=== PATIENT | male | born 1960 | race Caucasian/White ===

== ENCOUNTER 2019-07-10 09:17 | Emergency (ER) | payer OTHER, BC, SELFPAY ==
--- NOTE | ~2019-07-10 | XR_ITS ---
EXAMINATION: XR finger 3rd RT min 2V DATE: 07/10/2019 10:30 INDICATION: Status post foreign body removal TECHNIQUE: Dorsal palmar, lateral and 2 oblique views of the right third digit were obtained COMPARISON: 07/10/2019 at 9:39 AM FINDINGS: Bone alignment is normal. No fracture. 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 The previously seen small radiopaque foreign body at the palmar aspect of the third digit at the l evel of the distal interphalangeal joint is no longer visualized. Very subtle irregularity along the skin surface at the palmar crease of the third distal interphalangeal joint likely representing the s ite of reported laceration. Soft tissue swelling about the third proximal interphalangeal joint. Tiny ovoid heterotopic ossicle at the radial side of the head of the third proximal phalanx which could b e degenerative or more likely sequela of old trauma. IMPRESSION: 1. No residual radiopaque foreign bodies identified in the palmar soft tissues at the distal right th ird digit. Reviewed, dictated and finalized at location A. IMPRESSION: 1. No residual radiopaque foreign bodies identified in the palmar soft tissues at the distal right third digit.
--- NOTE | ~2019-07-10 | XR_ITS ---
XR finger 3rd RT min 2V DATE: 07/10/2019 09:44 INDICATION: Plywood splinter through mid finger. TECHNIQUE: 4 views COMPARISON: None FINDINGS: There is focal mild subcutaneous emphysema in association with what appears to be a radiopa que foreign body penetrating the volar aspect of the soft tissues of the distal digit anterior to the distal interphalangeal joint, with evidence of 2 4 bodies, one immediately subjacent to the skin and the other larger approximately 1.5 x 2 mm radial opaque foreign body situated and greater depth in t he anteromedial soft tissues at the anterior aspect of the head of the middle phalanx. There is osteoarthritic change at the distal interphalangeal joint. No fracture or dislocation, periosteal reaction or bone destruction. IMPRESSION: 2 radiopaque soft tissue foreign bodies at the distal anteromedial third digit with assoc iated minimal subcutaneous emphysema Reviewed, dictated and finalized at location A. IMPRESSION: 2 radiopaque soft tissue foreign bodies at the distal anteromedial third digit with associated minimal subcutaneous emphysema
[2019-07-10 09:21] VITALS: BP 171/109; PULSE 71; RESP 16; TEMP 36.6; O2SAT 94
[2019-07-10] MEDS: WATER, STERILE FOR INJECTION 10 ML VIAL XX (09:33)
--- NOTE | 2019-07-10 09:44 | ED.UPPEXIN ---
HPI - Extremity Injury (Upper) General Chief Complaint: Extremity Injury, Upper Stated Complaint: r hand injury Time Seen by Provider: 07/10/19 09:28 Source: patient Mode of arrival: ambulatory Limitations: no limitations History of Present Illness HPI narrative: This patient is a right hand dominant 58 year old male who presents with c/o right 3rd finger injury. Patient was at work when a piece of plywood slid down onto his hand. He states he has large splinter in his 3rd finger and he is unable to remove. His last tetanus has been in the past 5 years. He has pain with movement of his 3rd finger. complaint: injury to: right and finger Related Data Allergies Allergy/AdvReac Type Severity Reaction Status Date / Time No Known Allergies Allergy Unknown Verified 07/10/19 09:23 Review of Systems Review of Systems: All systems reviewed & are unremarkable except as noted in HPI and below PMFSH Surgical History Surgical History (Updated 07/10/19 @ 09:46 by Cecile Holloway MD) H/O right knee surgery Exam Const: General: no acute distress and alert Orientation/consciousness: patient oriented x3 Resp: Effort & Inspection: normal respiratory effort Neuro: General: patient oriented x3 and moves all extremities Extrem: Other: right hand with large splinter poking on palmar aspect and smaller poking out of ulnar aspect Course Reevaluation(s) Reevaluation #1: I was able to perform digital nerve block and remove 2 pieces of splinter. Patient has minimal pain and full rOM of finger. Xray shows FB no longer seen. Date: 07/10/19 Time: 11:31 Vital Signs Vital signs: Vital Signs Temperature 97.9 F 07/10/19 09:21 Pulse Rate 71 07/10/19 09:21 Respiratory Rate 16 07/10/19 09:21 Blood Pressure 171/109 H 07/10/19 09:21 Pulse Oximetry 94 07/10/19 09:21 Temperature 97.9 F 07/10/19 09:21 Pulse Rate 71 07/10/19 09:21 Respiratory Rate 16 07/10/19 09:21 Blood Pressure 171/109 H 07/10/19 09:21 Pulse Oximetry 94 07/10/19 09:21 Procedures Foreign Body Removal Foreign Body #1: Foreign Body Removal Date: 07/10/19 Foreign Body Removal Time: 10:00 Site: right and hand (3rd finger) Description of foreign body: other (splinter) Sedation/Analgesia: other (digit nerve block with bupivocaine) Technique: manual removal and removal with forceps Confirmed by:: radiograph Complications: none Post-procedure exam: awake, alert Neurovascular: normal distal pulse, normal capillary fill, distal light touch sensation intact and distal motor function normal MDM - Extremity Injury (Upper) Imaging Data Radiologist's impression: ITS Impressions Finger X-Ray 07/10/19 09:46 IMPRESSION: 2 radiopaque soft tissue foreign bodies at the distal anteromedial third digit with associated minimal subcutaneous emphysema Finger X-Ray 07/10/19 10:32 IMPRESSION: 1. No residual radiopaque foreign bodies identified in the palmar soft tissues at the distal right third digit. Discharge Plan Discharge Clinical Impression: Splinter of finger Patient Disposition: Home, Self-Care Condition: Stable Instructions: Antibiotic Form, Puncture Wound (ED), Finger Laceration (ED) Additional Instructions: Please watch for signs of infection such as swelling, redness, pain, pus drainage. If that occurs you will need to return to ER. Follow up with hand surgeon to assess for injury Prescriptions: New amoxicillin-pot clavulanate [Augmentin] 875-125 mg tablet 1 tablet PO Q12H Qty: 14 RF: 0 Follow-up/Referrals: Patricio Malcolm MD [Physician] - PHYSICIAN,FURNACE TENDER [Primary Care Provider] - Discharge Date/Time: 07/10/19 11:45
[2019-07-10] MEDS: ceFAZolin SODIUM 1 GM VIAL IV PUSH (09:48)
== END 2019-07-10 11:45 | disposition home or self-care (01) ==
PROVIDERS: Emergency Provider General Practice
DX: S60.452A Superficial foreign body of right middle finger, initial encounter (principal); W45.8XXA Other foreign body or object entering through skin, initial encounter
CPT/HCPCS: 73140; 96374; 99284; J0690

== ENCOUNTER 2022-02-25 09:45 | Emergency (ER) | payer BC, SELFPAY ==
--- NOTE | ~2022-02-25 | CT_ITS ---
EXAMINATION: CT abdomen pelvis w con DATE: 02/25/2022 12:01 INDICATION: Right inguinal bulge TECHNIQUE: Computed tomography (CT) of the abdomen and pelvis was performed with 100 cc Omnipaque 350 intravenous contrast. The dose-length product was 1418.90 mGy-cm. Automated exposure control and ite rative reconstruction technique were employed. COMPARISON: None. FINDINGS: There is dependent atelectasis. No significant pleural or pericardial effusion. Heart size is normal. There are changes of ventral hernia repair in the upper abdomen centrally. There are proba ble focal areas of fat necrosis along the right cardiophrenic angle. Small subcentimeter hypodensity of the right hepatic lobe, most likely benign. The spleen, pancreas, adrenal glands and right kidney are unremarkable. There are small subcentimeter hypodensities of the left kidney, most likely benign. No hydronephrosis There is a right inguinal hernia containing nonobstructed small bowel and bladder. Nonobstructive bow el gas pattern. Colonic diverticulosis without evidence for diverticulitis. No free air or free fluid . Mild lumbar spondylosis. IMPRESSION: 1. Right inguinal hernia containing nonobstructed small bowel and bladder. Reviewed, dictated and finalized at location A. 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
[2022-02-25 09:55] VITALS: BP 168/99; PULSE 72; RESP 20; TEMP 36.6; O2SAT 96
[2022-02-25 10:05] LABS: Basophils Absolute Auto 0.1 K/mm3 (0.0-0.1); Basophils Percent Auto 0.9 % (0.2-1.2); Eosinophils Absolute Auto 0.4 K/mm3 (0-0.3); Eosinophils Percent Auto 4.5 % (0-4.4); Hematocrit 50.7 % (42.0-52.0); Hemoglobin 16.7 g/dL (14.0-18.0); Immature Granulocyte Absolute 0.05 K/mm3 (0.00-0.031); Immature Granulocyte Percent A 0.6 % (0-0.5); Mean Corpuscular HGB Conc 32.9 g/dl (32-36); Mean Corpuscular Hemoglobin 30.3 pg (26-34); Mean Corpuscular Volume 91.8 fl (80-100); Mean Platelet Volume 8.6 fl (7.4-10.4); Monocytes Absolute Auto 0.6 K/mm3 (0.1-0.6); Monocytes Percent Auto 7.9 % (2.6-8.5); Neutrophils Absolute Auto 4.9 K/mm3 (1.3-6.7); Neutrophils Percent Auto 61.1 % (45.5-73.1); Platelet Count Result 332 k/mm3 (150-375); Red Blood Count 5.52 M/mm3 (4.6-6.20); Red Cell Distribution Width 12.6 % (11.5-14.5)
[2022-02-25 10:52] LABS: Alanine Aminotransferase 27 U/L (6-50); Albumin Level 4.3 g/dL (3.5-5.1); Alkaline Phosphatase 86 U/L (38-126); Anion Gap 3 mmol/L (8-16); Aspartate Amino Transferase 26 U/L (17-59); Bilirubin,Total 0.7 mg/dL (0.2-1.3); Blood Urea Nitrogen 17 mg/dL (9-20); Calcium 9.1 mg/dL (8.4-10.2); Carbon Dioxide 29 mmol/L (22-30); Chloride 108 mmol/L (98-107); Estimated CRCL calculation 91 ml/min; Estimated Glomerular Filt Rate > 60; Glucose 113 mg/dL (65-110); Lipase 129 U/L (23-300); Potassium 3.9 mmol/L (3.4-5.0); Sodium 140 mmol/L (137-145)
--- NOTE | 2022-02-25 11:34 | ED.GENADULT ---
HPI - General Adult General Chief complaint: Urogenital-Male <Janell Fernandez PA-C - Last Filed: 02/25/22 16:29> Stated complaint: right groin pain <GISELLA Ponce Last Filed: 02/25/22 16:29> Time Seen by Provider: 02/25/22 11:24 <Janell Fernandez PA-C - Last Filed: 02/25/22 16:29> History of Present Illness HPI narrative: Patient is a 61-year-old male here for evaluation of right inguinal pain. Patient states that he has felt a pain in his groin over the past several days that he likens to a muscle sprain, but the pain acutely worsened today. He now feels a bulge in his groin that is tender to palpation. Patient has been coughing and notes that the pain is worse with cough. No nausea, vomiting, dysuria, urgency or frequency. <GISELLA Ponce Last Filed: 02/25/22 16:29> Related Data Allergies/adverse reactions: Allergies Allergy/AdvReac Type Severity Reaction Status Date / Time No Known Allergies Allergy Unknown Verified 02/25/22 11:35 <GISELLA Ponce Last Filed: 02/25/22 16:29> Review of Systems Review of Systems: Gen.: Denies fevers or chills Eyes: Denies eye pain or visual change ENT: Denies congestion Respiratory: Denies shortness of breath or cough CV: Denies chest pain or palpitations GI: Denies abdominal pain nausea, emesis or diarrhea denies burning, urgency, frequency or hematuria Musculoskeletal: Reports right groin pain. Denies back pain or muscle pain Neuro: Denies numbness, tingling, weakness or focal weakness Skin: Denies rash Except as documented, all other systems reviewed and negative <GISELLA Ponce Last Filed: 02/25/22 16:29> PENDING SALE TO [facility] Past Medical History Medical History: Medical History (Updated 02/25/22 @ 13:57 by Lenny Alfonso DO) Tobacco dependence due to cigarettes <GISELLA Ponce Last Filed: 02/25/22 16:29> Surgical History Surgical History: Surgical History (Updated 02/25/22 @ 13:53 by Lenny Alfonso DO) H/O right knee surgery History of congenital diaphragmatic hernia History of left inguinal hernia repair History of ventral hernia repair <Janell Fernandez PA-C - Last Filed: 02/25/22 16:29> Family History Family History: Family History (Updated 02/25/22 @ 13:54 by Lenny Alfonso DO) Father Heart disease Cerebrovascular accident <GISELLA Ponce Last Filed: 02/25/22 16:29> Social History Social History: Social History (Updated 02/25/22 @ 13:55 by Lenny Alfonso DO) Smoking packs per day: 1.5 Smoking cigarettes per day: 30.0 Years smoked: 40 Smoking pack-years: 60.00 Smoking status: Current every day smoker Tobacco type: cigarettes Alcohol intake: current Drinks per week: 6 Substance use: current Substance use type: marijuana <GISELLA Ponce Last Filed: 02/25/22 16:29> Exam Narrative: APPEARANCE: Well appearing, no pain in distress, well-nourished. Head: Normocephalic and atraumatic. EYES: PERRLA/EOMI, conjunctivae clear NOSE: No nasal drainage EARS: External ear normal in appearance THROAT: Oropharynx is clear. Mucous membranes are moist. NECK: Supple. No adenopathy, no masses. RESPIRATORY: Airway patent, respirations nonlabored. Clear to auscultation bilaterally, no rales, rhonchi, wheezing. CARDIOVASCULAR: Regular rate and rhythm without murmurs, rubs, or gallops. ABDOMINAL: Palpable inguinal hernia and right scrotum, very tender to palpation, not easily reducible. MUSCULOSKELETAL: Extremities are warm and well-perfused. Moves all extremities well. No edema. NEURO: Normal speech. No focal neurologic deficits. SKIN: Skin is warm and dry. No rashes. PSYCHIATRIC: Normal affect/mood. 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
[2022-02-25] MEDS: MORPHINE SULFATE (*CRX) 4 MG/ML INJ IV PUSH (11:37)
[2022-02-25] MEDS: MORPHINE SULFATE (*CRX) 2 MG/ML INJ IV PUSH (12:21)
[2022-02-25 13:00] VITALS: BP 168/96; PULSE 76; RESP 18; O2SAT 100
[2022-02-25 13:15] VITALS: BP 178/94; PULSE 80; RESP 20; O2SAT 99
--- NOTE | 2022-02-25 13:48 | PM.CNGS ---
Assessment and Plan Assessment and plan (1) Incarcerated right inguinal hernia: Code(s): K40.30 - Unilateral inguinal hernia, with obstruction, without gangrene, not specified as recurrent Status: Acute Assessment and Plan: patient presented to the emergency department with right groin pain and a bulge that he 1st noticed about 4 or 5 hours ago while lifting heavy objects out of his truck. This was noted to be incarcerated by the ED practitioner and was unable to be reduced initially. CT showed evidence of a right inguinal hernia containing nonobstructed bowel and bladder. I reviewed the CT and then evaluated the patient. I was able to gently manipulate the hernia contents and completely reduced the hernia with about 1 minute of gentle pressure and manipulation. Patient felt relief of his pain once the hernia was reduced. He can be discharged from the emergency department and I have recommended rest for the next several days. Would recommend continuing to limit any strenuous activity to prevent recurrent incarceration. He may also try to wear a hernia belt or truss to help with symptoms. I did discuss that a hernia belt will not prevent a recurrent incarceration. Would recommend eventual surgical repair. If this can be planned electively, this could be performed as an outpatient procedure. I have recommended robotic assisted laparoscopic right inguinal hernia repair with mesh. I will have my office contact patient in the next several days to begin surgical scheduling and arrangements. (2) Tobacco dependence due to cigarettes: Code(s): F17.210 - Nicotine dependence, cigarettes, uncomplicated Status: Acute History of Present Illness Consult details Consult date: 02/25/22 Reason for consult: other (Incarcerated right inguinal hernia) Requesting physician: Janell Fernandez PA-C Narrative: This is a 61-year-old man who I am asked to see in the emergency department for an incarcerated right inguinal hernia. The patient has had some groin pain for the past several months but has not noticed any significant bulge previously. He was doing some heavy physical activity with work this morning and was moving some stuff out of his truck when he began experiencing worsening pain that almost doubled him over. He states that he could not even put a belt on and therefore decided to come to the emergency department. He denies any change in bowel habits or any nausea or vomiting. The patient had a CT of his abdomen and pelvis in the emergency department which showed evidence of a right inguinal hernia containing nonobstructed bowel and bladder. His white blood count and lactic acid were normal. The ED practitioner attempted to reduce the hernia with Trendelenburg position, ice, and IV pain meds. It was still exquisitely tender and non reducible, therefore I was called to evaluate the patient. Review of Systems Review of Systems: All systems reviewed & are unremarkable except as noted in HPI and below Constitutional: Constitutional: Denies chills and Denies fever(s) Eyes: Eyes: Denies change in vision ENT: Denies hearing loss, Denies neck pain and Denies sore throat Cardiovascular: Cardiovascular: Denies chest pain and Denies dyspnea Respiratory: Respiratory: Denies cough, Denies dyspnea and Denies wheezing Gastrointestinal: Gastrointestinal: Reports as per HPI Genitourinary: Genitourinary: Denies hematuria and Denies dysuria Musculoskeletal: Musculoskeletal: Denies arthralgias, Denies joint swelling and Denies neck pain Allergic/Immunologic: Allergic/Immunologic: Denies wheezing [facility] Past Medical History Medical History (Updated 02/25/22 @ 13:57 by Lenny Alfonso DO) Tobacco dependence due to cigarettes Surgical History Surgical History (Updated 02/25/22 @ 13:53 by Lenny Alfonso DO) H/O right knee surgery History of congenital diaphragmatic hernia History of left inguinal hernia repa
[2022-02-25 14:21] VITALS: BP 149/91; PULSE 81; RESP 18; O2SAT 96
[2022-02-25 14:36] LABS: Add Urine Microscopic? NO; Appearance Urine Clear (Clear); Bilirubin Urine Negative (Negative); Blood Urine Negative (Negative); Color Urine Yellow (Yellow); Glucose Urine UA Negative (Negative); Ketones Urine Negative (Negative); Leukocyte Esterase Ur Negative LEU/UL (Negative); Nitrate Urine Negative (Negative); Protein Urine Negative (Negative); Urobilinogen Urine 0.2 mg/dL (<2.0)
== END 2022-02-25 14:26 | disposition home or self-care (01) ==
PROVIDERS: General Practice; Emergency Provider Physician Assistant
DX: K40.30 Unilateral inguinal hernia, with obstruction, without gangrene, not specified as recurrent (principal); F17.210 Nicotine dependence, cigarettes, uncomplicated
CPT/HCPCS: 36415; 74177; 80053; 81003; 83605; 83690; 85025; 96374; 96376; 99284; J2270; Q9967

== ENCOUNTER 2022-06-10 16:29 | Emergency (ER) | payer BC, SELFPAY ==
[2022-06-10 16:38] VITALS: BP 167/96; PULSE 87; RESP 16; TEMP 37.1; O2SAT 99
[2022-06-10 16:42] VITALS: BP 167/96; PULSE 87; RESP 16; TEMP 37.1; O2SAT 99
--- NOTE | 2022-06-10 16:42 | ED.SKABFB ---
HPI - Skin/Abscess/Foreign Bdy General Chief complaint: Skin/Abscess/Foreign Body Stated complaint: rash Source: patient Mode of arrival: ambulatory Limitations: no limitations History of Present Illness HPI narrative: Patient is a 61-year-old male that presents with rash to upper buttocks, bilateral groin, and thighs for over 2 weeks. Patient states it started on upper buttocks and has spread. Unsure of what it looked like discharge stating he can not see the rash. Denies any itching. States he has been using cortisone cream with no relief. Reports dog has been sleeping in bed with. Denies any no soaps, detergents, clothing. Denies any fever, chills, shortness of breath. Related Data Allergies Allergy/AdvReac Type Severity Reaction Status Date / Time No Known Allergies Allergy Unknown Verified 06/10/22 16:33 Review of Systems Review of Systems: All systems reviewed & are unremarkable except as noted in HPI and below Constitutional: Constitutional: Denies body ache(s), Denies fever(s), Denies headache(s), Denies malaise and Denies weakness Eyes: Eyes: Denies loss of vision ENT: Denies otalgia, Denies headache(s), Denies nasal discharge, Denies sinus pain and Denies sore throat Cardiovascular: Cardiovascular: Denies chest pain, Denies irregular heart rhythm and Denies dyspnea Respiratory: Respiratory: Denies dyspnea Gastrointestinal: Gastrointestinal: Denies abdominal pain, Denies melena, Denies hematochezia, Denies diarrhea, Denies nausea and Denies vomiting Musculoskeletal: Musculoskeletal: Denies back pain, Denies myalgias and Denies arthralgias Integumentary/Breasts: Skin/Breast: Denies pruritus and Reports rash Neurologic: Denies headache(s), Denies loss of vision and Denies weakness Psychiatric: Psychiatric: Reports no additional psychiatric complaints PMFSH Past Medical History Medical History (Updated 06/10/22 @ 17:14 by Ashlee Odell APRN) Tobacco dependence due to cigarettes Surgical History Surgical History (Updated 02/25/22 @ 13:53 by Lenny Alfonso DO) H/O right knee surgery History of congenital diaphragmatic hernia History of left inguinal hernia repair History of ventral hernia repair Family History Family History (Updated 02/25/22 @ 13:54 by Lenny Alfonso DO) Father Heart disease Cerebrovascular accident Social History Social History (Updated 02/25/22 @ 13:55 by Lenny Alfonso DO) Smoking packs per day: 1.5 Smoking cigarettes per day: 30.0 Years smoked: 40 Smoking pack-years: 60.00 Smoking status: Current every day smoker Tobacco type: cigarettes Alcohol intake: current Drinks per week: 6 Substance use: current Substance use type: marijuana Comments At time of signature, agree with nursing past medical, surgical, social and family history. There is no relevant family history pertinent to the presenting complaint. Exam Const: General: cooperative, healthy appearing, comfortable, no acute distress and well nourished Nutritional Appearance: well nourished Orientation/consciousness: patient oriented x3 Limitations: no limitations HENMT: Head: normal to inspection, normocephalic and atraumatic Ears: external ears normal Face/Nose/Sinus: Normal external nose present, normal facial exam and face symmetric Face and sinus: normal facial exam and face symmetric Mouth: Yes lip normal Eyes: General: appearance normal, both eyes and all related structures Alignment and Position: alignment normal and position normal Periorbital: periorbital findings normal Eyelids: eyelids normal Pupils: Equal, round and reactive pupils present EOM: EOMs intact bilaterally Neck: Neck: normal visual inspection and full ROM Chest: Chest palpation & inspection: normal inspection of the chest Resp: Effort & Inspection: normal respiratory effort and able to speak in complete sentences Auscultation: clear to auscultation bilaterally Cardio: Rate: regu
== END 2022-06-10 17:28 | disposition home or self-care (01) ==
PROVIDERS: Emergency Provider Nurse Practitioner Family
DX: R21 Rash and other nonspecific skin eruption (principal); F17.210 Nicotine dependence, cigarettes, uncomplicated
CPT/HCPCS: 99213; G0463

== ENCOUNTER 2022-06-26 13:32 | Emergency (ER) | payer BC, SELFPAY ==
--- NOTE | ~2022-06-26 | XR_ITS ---
EXAM: XR elbow LT min 3V DATE: 06/26/2022 13:56 HISTORY: PAIN SWELLING AND REDNESS POSTERIOR LT ELBOW . COMPARISON: None available. FINDINGS: Normal mineralization. No fracture or dislocation. No lytic or blastic lesion. Mild degene rative change at the elbow joint. No erosion or periosteal change. Posterior soft tissue swelling. IMPRESSION: No acute osseous finding in the left elbow. Reviewed, dictated and finalized at location K.
[2022-06-26 13:40] VITALS: BP 120/95; PULSE 98; RESP 16; TEMP 37.3; O2SAT 97
--- NOTE | 2022-06-26 14:19 | ED.EXTPRO ---
HPI - Extremity Problem General Chief complaint: Extremity Problem,Nontraumatic Stated complaint: Elbow Injury Time Seen by Provider: 06/26/22 14:19 Source: patient, RN notes reviewed and old records reviewed Mode of arrival: ambulatory Limitations: no limitations History of Present Illness HPI Narrative: 61-year-old male presents to the [facility] with complaints of left elbow pain posterior. Swelling noted to the lateral on. States has been going on for approximately 1 week. No treatment prior to arrival. Two days ago patient noticed redness to the posterior arm, not circumferential. Has full range of motion the elbow, wrist. 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 Capillary refill under 2 seconds with sensation intact. Positive radial pulse Onset (ago): week(s) (1) Related Data Allergies Allergy/AdvReac Type Severity Reaction Status Date / Time No Known Allergies Allergy Unknown Verified 06/10/22 16:33 Review of Systems Review of Systems: All systems reviewed & are unremarkable except as noted in HPI and below Constitutional: Constitutional: Reports no additional constitutional complaints Eyes: Eyes: Reports no additional eye complaints ENT: Reports system reviewed and no additional complaints, except as documented Cardiovascular: Cardiovascular: Reports no additional cardiovascular complaints, Denies chest pain and Denies dyspnea Respiratory: Respiratory: Reports no additional respiratory complaints, Denies chest congestion, Denies cough and Denies dyspnea Gastrointestinal: Gastrointestinal: Reports no additional gastrointestinal complaints, Denies abdominal pain, Denies nausea and Denies vomiting Musculoskeletal: Musculoskeletal: Reports as per HPI Integumentary/Breasts: Skin/Breast: Reports system reviewed and no additional complaints, except as docu Neurologic: Reports system reviewed and no additional complaints, except as documented Psychiatric: Psychiatric: Reports no additional psychiatric complaints Allergic/Immunologic: Allergic/Immunologic: Reports no additional allergic/immunologic complaints [facility] Past Medical History Medical History Tobacco dependence due to cigarettes Surgical History Surgical History H/O right knee surgery History of congenital diaphragmatic hernia History of left inguinal hernia repair History of ventral hernia repair Family History Family History Father Heart disease Cerebrovascular accident Social History Social History Smoking packs per day: 1.5 Smoking cigarettes per day: 30.0 Years smoked: 40 Smoking pack-years: 60.00 Smoking status: Current every day smoker Tobacco type: cigarettes Alcohol intake: current Drinks per week: 6 Substance use: current Substance use type: marijuana Comments At the time of my signature, I reviewed and agree with the nursing past medical, surgical, social, and family history. There is no relevant family history pertinent to the patient complaint. Exam Const: General: cooperative, healthy appearing, comfortable, no acute distress, well developed, alert and well nourished Nutritional Appearance: well nourished Orientation/consciousness: patient oriented x3 Limitations: no limitations HENMT: Head: normal to inspection Ears: hearing grossly normal bilaterally and external ears normal Face/Nose/Sinus: Normal external nose present, Normal nares present, Normal nasal mucous membranes and turbinates present and normal facial exam Face and sinus: normal facial exam Eyes: General: appearance normal, both eyes and all related structures Alignment and Position: alignment normal Periorbital: periorbital findings normal Conjunctivae: conjunctivae normal Pupils: Equal, round and reactive pupils present EOM: EOMs intact bilat
== END 2022-06-26 14:38 | disposition home or self-care (01) ==
PROVIDERS: Emergency Provider Nurse Practitioner
DX: L03.114 Cellulitis of left upper limb (principal); M70.22 Olecranon bursitis, left elbow; F17.210 Nicotine dependence, cigarettes, uncomplicated
CPT/HCPCS: 73080; 99213; G0463

== ENCOUNTER 2022-08-31 19:24 | Emergency (ER) | payer BC, SELFPAY ==
--- NOTE | 2022-08-31 19:34 | ED.SKABFB ---
HPI - Skin/Abscess/Foreign Bdy General Chief complaint: Skin/Abscess/Foreign Body Stated complaint: Insect Bite Time Seen by Provider: 08/31/22 19:34 Source: patient Mode of arrival: ambulatory Limitations: no limitations History of Present Illness HPI narrative: Patient is a 61-year-old male who presents with wound to right ankle. Patient states he got bit a week ago by what he thinks it was a mosquito. Since then the redness around the bite has grown worsening today. There is still what appears as a bite lorenzo in the middle but patient denies any drainage from wound. Reports tenderness on palpation. Denies any numbness tingling weakness to foot or ankle. Has used antibiotic ointment and ice with little to no change. Related Data Allergies Allergy/AdvReac Type Severity Reaction Status Date / Time No Known Allergies Allergy Unknown Verified 06/10/22 16:33 Review of Systems Review of Systems: All systems reviewed & are unremarkable except as noted in HPI and below Constitutional: Constitutional: Denies body ache(s), Denies chills, Denies fatigue, Denies fever(s), Denies headache(s), Denies malaise and Denies weakness Eyes: Eyes: Denies blurry vision, Denies irritation and Denies loss of vision ENT: Denies otalgia, Denies headache(s), Denies nasal discharge, Denies sinus pain and Denies sore throat Cardiovascular: Cardiovascular: Denies chest pain, Denies irregular heart rhythm and Denies dyspnea Respiratory: Respiratory: Denies dyspnea Gastrointestinal: Gastrointestinal: Denies abdominal pain, Denies melena, Denies hematochezia, Denies diarrhea, Denies nausea and Denies vomiting Musculoskeletal: Musculoskeletal: Denies back pain, Denies myalgias and Denies arthralgias Integumentary/Breasts: Skin/Breast: Denies pruritus, Reports lesions and Denies rash Neurologic: Denies headache(s), Denies loss of vision and Denies weakness Psychiatric: Psychiatric: Reports no additional psychiatric complaints Endocrine: Endocrine: Denies fatigue PMFSH Past Medical History Medical History Tobacco dependence due to cigarettes Surgical History Surgical History H/O right knee surgery History of congenital diaphragmatic hernia History of left inguinal hernia repair History of ventral hernia repair Family History Family History Father Heart disease Cerebrovascular accident Social History Social History Smoking packs per day: 1.5 Smoking cigarettes per day: 30.0 Years smoked: 40 Smoking pack-years: 60.00 Smoking status: Current every day smoker Tobacco type: cigarettes Alcohol intake: current Drinks per week: 6 Substance use: current Substance use type: marijuana Comments At time of signature, agree with nursing past medical, surgical, social and family history. There is no relevant family history pertinent to the presenting complaint. Exam Const: General: cooperative, healthy appearing, comfortable, no acute distress and well nourished Nutritional Appearance: well nourished Orientation/consciousness: patient oriented x3 Limitations: no limitations HENMT: Head: normal to inspection, normocephalic and atraumatic Ears: hearing grossly normal bilaterally and external ears normal Face/Nose/Sinus: Normal external nose present, normal facial exam and face symmetric Face and sinus: normal facial exam and face symmetric Mouth: Yes lip normal Eyes: General: appearance normal, both eyes and all related structures Alignment and Position: alignment normal and position normal Periorbital: periorbital findings normal Eyelids: eyelids normal Pupils: Equal, round and reactive pupils present EOM: EOMs intact bilaterally Neck: Neck: normal visual inspection, full ROM and supple Chest: Chest
[2022-08-31 19:40] VITALS: BP 141/83; PULSE 96; RESP 20; TEMP 37.6; O2SAT 97
== END 2022-08-31 20:01 | disposition home or self-care (01) ==
PROVIDERS: Emergency Provider Nurse Practitioner Family
DX: L03.115 Cellulitis of right lower limb (principal); S90.561A Insect bite (nonvenomous), right ankle, initial encounter; W57.XXXA Bitten or stung by nonvenomous insect and other nonvenomous arthropods, initial encounter; F17.210 Nicotine dependence, cigarettes, uncomplicated; F12.90 Cannabis use, unspecified, uncomplicated
CPT/HCPCS: 99213; G0463